=== PATIENT | male | born 1995 | race Caucasian/White ===

== ENCOUNTER 2018-04-23 22:11 | Emergency (ER) | payer SELFPAY ==
[~2018-04-23] VITALS: Ht 180.3 cm; Wt 59.0 kg
[2018-04-23] MEDS ORDERED: VOLTAREN - GENE75 MG PO (22:43)
[2018-04-23 22:51] VITALS: BP 135/91
== END 2018-04-23 22:59 | disposition home or self-care (01) | DRG 74 ==
LOC: ED 22:11
DX: G58.0 Intercostal neuropathy (principal); R20.2 Paresthesia of skin; R11.0 Nausea